=== PATIENT | female | born 1990 | race Two or more races ===

== ENCOUNTER 2020-07-30 21:54 | Emergency (ER) | payer OTHER ==
[~2020-07-30] VITALS: Ht 167.6 cm; Wt 99.8 kg
[2020-07-30 23:15] VITALS: BP 145/86
== END 2020-07-31 00:29 | disposition home or self-care (01) ==
LOC: ER 21:54
DX: S61.412A Laceration without foreign body of left hand, initial encounter (principal); X58.XXXA Exposure to other specified factors, initial encounter; Y93.89 Activity, other specified; Y92.89 Other specified places as the place of occurrence of the external cause; Y99.8 Other external cause status
CPT/HCPCS: 12001